=== PATIENT | female | born 1970 | race Caucasian/White ===

== ENCOUNTER → 2021-04-21 | Outpatient (CLI) | payer MEDICARE ==
[~2021-04-21] MED LIST: ASPIRIN CHEWABL81 MG PO; BENTYL 20MG TAB20 MG PO; BUPROPION XL150 MG PO; BUSPAR 10MG10 MG PO; CEFUROXIME500 MG PO; CIPRO500 MG PO; ENBREL50 MG/1 ML SQ; FLONASE 0.05% N16 GM; FLOXIN 0.3% OTIC5 ML EARBOTH; GLUCOPHAGE500 MG PO; IBUPROFEN600 MG PO; K-DUR TAB 20 M20 MEQ PO; LIVALO2 MG PO; LOPRESSOR 25 MG25 MG PO; MECLIZINE HCL25 MG PO; MIRALAX17 GM PO; MOBIC15 MG PO; NEURONTIN 300300 MG PO; NEURONTIN300 MG PO; NITROSTAT 0.40.4 MG SL; NORVASC10 MG PO; PHENERGAN 25 MG25 M1 PO; PREDNISONE20 MG PO; PROTONIX40 M1 PO; PROTONIX40 MG PO; PROZAC20 MG PO; RANEXA500 MG PO; SINGULAIR10 MG PO; TYLENOL W/CODEIN1 E1 PO; VALTREX1000 MG PO; VICTOZA 3-0.6 MG/0.1 SQ; Voltaren Gel 1 % TOP; ZANAFLEX4 MG PO; ZESTRIL10 MG PO; ZOFRAN ODT8 MG PO
== END ==
LOC: KOH-I 08:26
DX: M16.0 Bilateral primary osteoarthritis of hip (principal); M51.36 Other intervertebral disc degeneration, lumbar region; M48.07 Spinal stenosis, lumbosacral region; M17.0 Bilateral primary osteoarthritis of knee
CPT/HCPCS: 72110; 73522; 73564

== ENCOUNTER → 2021-06-19 | Outpatient (CLI) | payer MEDICARE | LOC: KOH-I 11:00 | DX: M25.552 Pain in left hip (principal); M54.16 Radiculopathy, lumbar region; R60.0 Localized edema | CPT/HCPCS: 73721 ==

== ENCOUNTER → 2021-12-09 | Outpatient (CLI) | payer MEDICARE | LOC: KOH-I 12:26 | DX: R06.2 Wheezing (principal); R06.02 Shortness of breath | CPT/HCPCS: 71046 ==

== ENCOUNTER → 2022-01-09 | Outpatient (CLI) | payer MEDICARE | LOC: KOH-I 14:14 | DX: M79.672 Pain in left foot (principal) | CPT/HCPCS: 73630 ==

== ENCOUNTER 2022-05-16 17:17 | Emergency (ER) | payer MEDICARE, OTHER ==
[2022-05-16] MEDS ORDERED: CLEOCIN HCL300 MG PO (19:30)
[2022-05-16] MEDS ORDERED: OMNICEF 300 MG300 MG PO (19:30)
== END 2022-05-16 19:53 | disposition home or self-care (01) ==
LOC: ER1 17:17
DX: T63.301A Toxic effect of unspecified spider venom, accidental (unintentional), initial encounter (principal); L03.116 Cellulitis of left lower limb; I11.9 Hypertensive heart disease without heart failure; E11.9 Type 2 diabetes mellitus without complications; Z88.2 Allergy status to sulfonamides
CPT/HCPCS: 96372; 99283; J0696